=== PATIENT | female | born 1945 | race Caucasian/White ===

== ENCOUNTER → 2016-03-30 | Outpatient (CLI) | payer OTHER | LOC: MMPC 10:00 | PROVIDERS: ATTEND Podiatrist Foot & Ankle Surgery | DX: M20.22 Hallux rigidus, left foot (principal); M20.12 Hallux valgus (acquired), left foot; M06.9 Rheumatoid arthritis, unspecified | CPT/HCPCS: 99214; G0463 ==

== ENCOUNTER 2016-04-14 05:58 | Day surgery (SDC) | payer OTHER ==
[2016-04-14] MEDS ORDERED: ceFAZolin Inj 2gm (Premix) 50 ML IV ONE (06:04)
[2016-04-14] MEDS ORDERED: Lactated Ringers 1,000 ML PRIMARY IV ONE (06:04)
[2016-04-14] MEDS ORDERED: LIDOCAINE W/ SODIUM BICARB 0.5 ML SYR ONE (06:04)
[2016-04-14] MEDS ORDERED: BUPIVACAINE 0.5% W/ EPI - 10 ML VIAL ONE (07:18)
[2016-04-14] MEDS ORDERED: MIDAZOLAM 5 MG/1 ML ONE (07:18)
[2016-04-14] MEDS ORDERED: LIDOCAINE 2%/ EPI 1:200,000 - 20 ML VIAL ONE (07:18)
[2016-04-14] MEDS ORDERED: fentaNYL Inj 100 MCG/2 ML VIAL ONE (07:18)
[2016-04-14] MEDS ORDERED: BUPivacaine Liposome/PF (Exparel) Inj 20ml vial INFIL ONE (07:23)
[2016-04-14] MEDS ORDERED: NORMAL SALINE 10 ML SYRINGE FLUSH IVP PRN (09:37)
[2016-04-14 09:41] VITALS: RESP 12
--- NOTE | 2016-04-14 09:47 | CRNA.PROCE ---
Nerve Block Documentation - - Safety Measures: Time Out Taken, Site Verified - - Type of Nerve Block Used: Left Popliteal Fossa Block Position for Nerve Block: Prone Moniters Used During Block: EKG, SPO2, NIBP Oxygen Sumpplented: Yes Sedation Used - Enter Amount in Comment Field: Midazolam (mg): Yes (2mg iv), Fentanyl (mcg): Yes (50mc iv) Skin Prep Used: ChloroPrep Technique: Nerve Stimulator Nerve Block Needle Used: 80 mm ProBlk II Stimulation Hz: 1.0 Stimulation Staring mA: 1.2 Stimulation Ending mA: 0.5 Local Anesthetic - Enter Amt in Comment Field: 0.5 % Bupivicaine with Epinephrine 1:200,000 (mL): Yes (20ml), 2 % Xylocaine with Epinephrine 1:200, 000 (mL): Yes (20ml)
[2016-04-14] MEDS ORDERED: HYDROcodone-APAP 7.5 MG-325 MG TABLET PO PRN (09:49)
--- NOTE | 2016-04-14 10:04 | GEN.OPNOTE ---
Operative Report Surgeon: Yamil James DPM Anesthesia Type: Regional, Local (with post operative exparel subcutaneous), MAC Anesthesia Provider: Rolan Garcia CRNA Surgery Date: 04/14/16 Preoperative Diagnosis: 1. Left hallux rigidus. 2. Left hallux valgus. 3. Left foot pain. 4. DM 2 Postoperative Diagnosis: 1. Left hallux rigidus. 2. Left hallux valgus. 3. Left foot pain. 4. DM 2 Procedure: 1. Left modified Troy bunionectomy. 2. Left Chad osteotomy proximal phalanx. Estimated Blood Loss (mL): 2 (a pneumatic cuff was used on the left ankle at 250 mm mercury pressure for a total time of 88 minutes.) Fluids: 2 g Ancef given preoperatively. 700 mL crystalloid by IV. Subcutaneous Exparel injected subcutaneously postoperatively prior to closure Findings at Surgery: Significant exostosis buildup around the left first metatarsophalangeal joint with loss of cartilage over the superior 40% of the head of the first metatarsal. Bone is also noted to be osteopenic to osteoporotic in nature. Indications for the Procedure: Left foot pain. Limitation of 1st MTPJ joint motion. Left distal hallux valgus of the IPJ, causing the tip of the toe to rub into the 2nd toe which is starting to hammer. Description of Procedure: The patient was brought to the operating room and placed in the supine position. They had already been given a popliteal block of the left lower extremity, and MAC was continued. The left foot was prepped and draped in the usual sterile fashion. A timeout was performed. A preoperative C-arm radiograph was taken to help delineate the area of concern, and this was marked on the foot. The foot was then exsanguinated with an elastic Esmarch, after which a pneumatic cuff was inflated about the left ankle to 250 mmHg pressure. Modified Troy Bunionectomy Attention was directed to the dorsal first metatarsophalangeal joint on the right foot. A linear incision was made just lateral to the extensor hallucis longus tendon of the proximally 4 cm length. This was deepened by sharp and blunt dissection to level of the joint capsule. Joint capsule was also incised longitudinally and retracted as the fibers are released from the exostosis. Significant exostosis was noted around the first metatarsophalangeal joint. The first metatarsal head exostosis was removed with a sagittal saw, dorsally, dorsal laterally, dorsal medially, and medially. This was checked with C-arm and modified as needed. The wound was copiously irrigated. Range of motion was noted to be increased. Next a power rasp was used to smooth the edge of the cuts and contour the first metatarsal head. The wound was copiously irrigated. Bone wax was applied to the first metatarsal head dorsally and again the wound was copiously irrigated. Chad Osteotomy of the Proximal Phalanx Next attention was directed to the hallux valgus deformity of the left great toe. The tip of the left great toe angled and grows into the second toe causing pain and irritation. It is also causing the second toe hammer. To correct the distal articular set angle an Chad osteotomy was planned for the distal aspect of the proximal phalanx. A new skin incision medial to the left proximal phalanx was made from the interphalangeal joint back to the base or medial condyle. The incision was then deepened on the medial aspect of the great toe to the bone by sharp and blunt dissection until the medial aspect of the proximal phalanx was identified. A #15 blade was used to incise the periosteum which is then freed with a periosteal elevator. A wedge osteotomy was then performed toward the distal aspect including the lateral cortical hinge , and this was fixated under C-arm with an Ortholoc Forefoot Fracture Set - Three hole Chad plate, utilizing two 2.4 mm 14 mm locking screws and one 2.4 mm X 16mm locking screw. The wounds irrigated and then periosteum and subcutaneous tissues were closed with 4-0 Vicryl. Exparel was then injected around into the subcutaneous tissues of the first ray. Closure was completed with 4-0 Vicryl for the 1st MTPJ joint capsule and subcutaneous tissues. And 4-0 nylon for the skin of both separate incisions. This was reinforced with Mastisol and Steri-Strips. A dressing consisted of Xeroform, gauze, Kerlix, and a Coban dressing. The pneumatic cuff was released after 66 minutes total time. Capillary return was noted all toes. The patient was returned recovery. Plan: Postoperative instructions have been discussed with the family, and with Michelle. She has already picked up her postoperative medications. She will he will be allowed to heal weight-bear in a postoperative shoe and while using her 4 point walker. This will be limited to a minimum number of steps to go from one room to another, or for bathroom privileges. Follow-up will be in 1 week for her first dressing change. All the patient's questions as well as her family's have been answered.
--- NOTE | 2016-04-14 11:24 | DI ---
HISTORY: Postoperative images of the left foot for hallux rigidus and hallux valgus. COMPARISON: 11/25/2015. FINDINGS: Compared to the previous examination of 11/25/2015, there is post surgical osteotomy of th e mid shaft of the proximal phalanx of the big toe with metallic plate and crew fixation bridging the osteotomy in satisfactory position. The remainder of the examination is unremarkable. IMPRESSION: 1. Post surgical osteotomy of the mid shaft of the proximal phalanx of the big toe with metallic plat e and crew fixation bridging the osteotomy in satisfactory position.
[2016-04-14 11:35] VITALS: TEMP 96.9
--- NOTE | 2016-04-14 16:12 | OPS CRUTCH ---
Diagnosis : Left Bunionectomy Referral Reason: Gait Training/Walker S: The patient stated she has no feeling in her left foot. The patient states she has three stairs to get into her home. O: Patient was instructed in the use of standard walker with gait belt, both on level surfaces and up and down four stairs. Patient was issued a walker and instructed in its propre use and care. A: The patient was able to perform gait training with stand by assist. She had assistance for home transfer. P: No further therapy is indicated at this time. MTDD
== END 2016-04-14 11:33 | disposition home or self-care (01) ==
LOC: SDSC 05:58
PROVIDERS: ATTEND Podiatrist Foot & Ankle Surgery
DX: M20.22 Hallux rigidus, left foot (principal); M20.12 Hallux valgus (acquired), left foot; M06.842 Other specified rheumatoid arthritis, left hand; M06.841 Other specified rheumatoid arthritis, right hand; E11.8 Type 2 diabetes mellitus with unspecified complications
CPT/HCPCS: 28298; 73630; 76001; 87641; 97116; C9290; J0690; J2704; J3010; J2250; J7120

== ENCOUNTER → 2016-04-20 | Outpatient (CLI) | payer OTHER | LOC: MMPC 10:00 | PROVIDERS: ATTEND Podiatrist Foot & Ankle Surgery | DX: Z98.890 Other specified postprocedural states (principal) ==

== ENCOUNTER → 2016-05-17 | Outpatient (CLI) | payer OTHER ==
--- NOTE | 2016-05-17 14:26 | DI ---
LEFT FOOT, 05/17/2016 12:30 PM: Clinical History: Left foot bunion. Previous Exam: 04/14/2016 4 weightbearing views are submitted. The patient is status post bunionectomy and osteotomy of the pro ximal phalanx of the great toe. The osteotomy lucency is still visible. No acute abnormalities are no klever in the remainder of the study. Reading: Status post bunionectomy and osteotomy of the proximal phalanx of the great toe.
== END ==
LOC: MOB RAD 12:34
PROVIDERS: ATTEND Podiatrist Foot & Ankle Surgery
DX: Z47.89 Encounter for other orthopedic aftercare (principal); M21.612 Bunion of left foot; Z98.890 Other specified postprocedural states
CPT/HCPCS: 73630

== ENCOUNTER → 2016-06-15 | Outpatient (CLI) | payer OTHER ==
--- NOTE | 2016-06-15 13:13 | DI ---
LEFT FOOT, 06/15/2016 11:22 AM: Clinical History: Bunion of the left foot. Previous Exam: 04/14/2016; 05/17/2016. 3 weightbearing views are submitted. The patient is status post bunionectomy and osteotomy of the pro ximal phalanx of the great toe. Since the previous exam, the osteotomy site has developed a lucency a nd there is sclerosis on both sides of the osteotomy. This is suspicious for delayed union. The remai nder of the foot exam is normal. Readin. A lucency has developed at the previous osteotomy site with sclerosis on both sides of the osteot ethan. 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 2. Status post bunionectomy.
== END ==
LOC: MOB RAD 11:24
PROVIDERS: ATTEND Podiatrist Foot & Ankle Surgery
DX: Z47.89 Encounter for other orthopedic aftercare (principal); M21.612 Bunion of left foot; M79.672 Pain in left foot; Z98.890 Other specified postprocedural states
CPT/HCPCS: 73630

== ENCOUNTER → 2016-07-13 | Outpatient (CLI) | payer OTHER | LOC: MMPC 10:00 | PROVIDERS: ATTEND Podiatrist Foot & Ankle Surgery | DX: Z98.890 Other specified postprocedural states (principal) ==